=== PATIENT | male | born 1955 | race Caucasian/White ===

== ENCOUNTER 2017-07-19 13:10 | Emergency (ER) | payer SELFPAY ==
--- NOTE | 2017-07-19 16:19 | ED ---
Back Pain - HPI Summary HPI Summary: 61 yr old male with the complaint of low back pain. The patient fell down four steps this morning and landed on his lower back on stair. he states he had a carhart jacket on that absorbed the shock. He has pain over the right lower back. Denies numbness, tingling weakness in the legs. No other complaints. No bowel or bladder incontinence. - History of Current Complaint Chief Complaint: UCBackPain Stated Complaint: BACK PAIN Time Seen by Provider: 07/19/17 15:21 - Allergies/Home Medications Allergies/Adverse Reactions: Allergies Allergy/AdvReac Type Severity Reaction Status Date / Time Tramadol [From Ultram] AdvReac Headache Verified 07/19/17 15:06 Home Medications: Home Medications Acetaminophen [Acetaminophen Extra Stren] 1,000 mg PO Q8H PRN 07/19/17 [History Confirmed 07/19/17] Ibuprofen TAB* [Motrin TAB* 800 MG] 800 mg PO Q6H PRN 07/19/17 [History Confirmed 07/19/17] Methocarbamol [Robaxin-750 MG TAB] 750 mg PO Q12H PRN 07/19/17 [History Confirmed 07/19/17] PMH/Surg Hx/FS Hx/Imm Hx - Surgical History Surgery Procedure, Year, and Place: APP Infectious Disease History: No Infectious Disease History: Denies: Traveled Outside the [place] in Last 30 Days - Family History Known Family History: Positive: None - Social History Alcohol Use: Occasionally Substance Use Type: Reports: None Smoking Status (MU): Former Smoker Review of Systems Positive: Other - back pain after falling All Other Systems Reviewed And Are Negative: Yes Physical Exam Triage Information Reviewed: Yes Vital Signs On Initial Exam: Initial Vitals Temp Pulse Resp BP Pulse Ox 98.2 F 87 24 150/68 97 07/19/17 14:59 07/19/17 14:59 07/19/17 14:59 07/19/17 14:59 07/19/17 14:59 Vital Signs Reviewed: Yes Appearance: Positive: Well-Appearing, No Pain Distress Skin: Positive: Warm, Skin Color Reflects Adequate Perfusion Head/Face: Positive: Normal Head/Face Inspection Eyes: Positive: EOMI ENT: Positive: Normal ENT inspection Neck: Positive: Nontender Respiratory/Lung Sounds: Positive: Clear to Auscultation, Breath Sounds Present Cardiovascular: Positive: RRR. Negative: Murmur Abdomen Description: Positive: Nontender. Negative: Distended, Guarding Musculoskeletal: Positive: Other - Tender over the right side of low lumbar spine. No bruise, no swelling. Neurological: Positive: Sensory/Motor Intact, Alert, Oriented to Person Place, Time, CN Intact II-III, Speech Normal Psychiatric: Positive: Normal - Roel Coma Scale Best Eye Response: 4 - Spontaneous Best Motor Response: 6 - Obeys Commands Best Verbal Response: 5 - Oriented Diagnostics - Vital Signs Vital Signs Temp Pulse Resp BP Pulse Ox 07/19/17 14:59 98.2 F 87 24 150/68 97 - Laboratory Lab Statement: Any lab studies that have been ordered have been reviewed, and results considered in the medical decision making process. Back Pain Course/Dx - Course Course Of Treatment: 61 yr old male with contusion to low back after falling. he has been informed of the calcifications in his aorta which are incidental finding and he will follow up with primary doctor for further direction. He is having no abdominal pain. - Diagnoses Provider Diagnoses: Low back pain, Contusion of lower back, Hypertension, Aortic calcification Discharge - Discharge Plan Condition: Good Disposition: HOME Prescriptions: Cyclobenzaprine TAB* [Flexeril 10 MG TAB*] 10 mg PO BID PRN #14 tab PRN Reason: Spasms Patient Education Materials: Acute Low Back Pain (ED), Hypertension (ED) Referrals: [facility] [place] [facility] [Outside] No Primary Care Phys,NOPCP [Primary Care Provider] - Additional Instructions: You also have calcifications in your aorta, the major blood vessel in your abdomen. You need to follow up with your doctor to have this further evaluated.
--- NOTE | 2017-07-19 16:52 | RAD ---
INDICATION: Right low back pain after a fall COMPARISON: None. TECHNIQUE: 5 views of the lumbar spine were obtained. FINDINGS: Degenerative changes of the lower thoracic and lumbar spine include mild loss of intervertebral disc height. There is no definite fracture or dislocation. Incidental note is made of coarse atherosclerotic calcification of the visualized aorta and iliac arteries. IMPRESSION: 1. Mild degenerative changes of the lumbar spine without radiographically apparent acute fracture or dislocation. 2. Coarse atherosclerotic calcification of the visualized lower abdominal aorta and iliac arteries. Please correlate to any signs or symptoms of arterial insufficiency.
--- NOTE | 2017-07-19 16:54 | RAD ---
INDICATION: Right-sided pelvic pain after a fall TECHNIQUE: An AP view of the pelvis was obtained. FINDINGS: The bones are in normal alignment. No fracture is seen. Joint spaces appear maintained. Atherosclerotic calcification is seen overlying the left greater than right femoral arteries and scattered at the bilateral iliac arteries. IMPRESSION: 1. No radiographically apparent acute fracture or dislocation in the AP view of the pelvis. 2. Calcified atherosclerosis is seen in the visualized iliofemoral arteries. Please correlate to any signs or symptoms of pelvic or lower extremity arterial insufficiency.
[2017-07-19 17:05] VITALS: BP 166/70
== END 2017-07-19 17:09 | disposition home or self-care (01) ==
LOC: UCCORT 13:10
DX: S30.0XXA Contusion of lower back and pelvis, initial encounter (principal); W10.9XXA Fall (on) (from) unspecified stairs and steps, initial encounter; Y93.9 Activity, unspecified; Y92.9 Unspecified place or not applicable; M54.5 Low back pain; I10 Essential (primary) hypertension; I70.0 Atherosclerosis of aorta; Z90.89 Acquired absence of other organs; Z88.5 Allergy status to narcotic agent; Z87.891 Personal history of nicotine dependence
CPT/HCPCS: 72110; 72170; 99202; G0463